=== PATIENT | male | born 1960 | race Caucasian/White ===

== ENCOUNTER 2017-03-22 15:45 | Inpatient (IN) | payer SELFPAY ==
[~2017-03-22] VITALS: Ht 165.1 cm; Wt 63.5 kg
[2017-03-22] MEDS ORDERED: IPRATRPIUM/ALBUTEROL 0.5/2.5MG 3 ML NEBU. NEB ONE (16:30)
[2017-03-22] MEDS ORDERED: methylPREDNISolone SOD SUCC PF 125 MG/2 ML VIAL. IV ONE (16:30)
[2017-03-22 16:40] LABS: BASO # 0.1 x10^3/uL (0.0-0.2); BASO % 0 % (0-3); EOS % 0 % (0-3); HEMATOCRIT 40.2 % (39.0-53.0); HEMOGLOBIN 13.9 g/dL (13.0-17.5); LYMPH # 0.7 x10^3/uL (1.0-4.8); LYMPH % 4 % (24-48); MEAN CORPUSCULAR HEMOGLOBIN 32 pg (25-35); MEAN CORPUSCULAR HGB CONC 35 g/dL (31-37); MEAN CORPUSCULAR VOLUME 92 fL (79-100); MONO # 1.8 x10^3/uL (0.0-1.1); MONO % 9 % (0-9); NEUT # 16.8 x10^3uL (1.8-7.7); NEUT % 87 % (31-73); PLATELET COUNT 151 x10^3/uL (140-400); RED BLOOD COUNT 4.37 x10^6/uL (4.30-5.70); WHITE BLOOD COUNT 19.4 x10^3/uL (4.0-11.0)
[2017-03-22] MEDS ORDERED: IV NORMAL SALINE 1,000ML 1,000 ML IV ONE (16:45)
[2017-03-22 17:14] LABS: ALBUMIN 2.7 g/dL (3.4-5.0); ALBUMIN/GLOBULIN RATIO 0.7 (1.0-1.7); ALK PHOS 75 U/L (46-116); ALT (SGPT) 50 U/L (16-63); ANION GAP 9 (6-14); AST (SGOT) 34 U/L (15-37); BLOOD UREA NITROGEN 15 mg/dL (8-26); BUN/CREATININE RATIO 19 (6-20); CALCIUM 8.5 mg/dL (8.5-10.1); CARBON DIOXIDE 26 mmol/L (21-32); CHLORIDE 97 mmol/L (98-107); CREATININE 0.8 mg/dL (0.7-1.3); GFR 99.6; GLUCOSE 138 mg/dL (70-99); POTASSIUM 4.1 mmol/L (3.5-5.1); SODIUM 132 mmol/L (136-145); TOTAL BILIRUBIN 1.3 mg/dL (0.2-1.0); TOTAL PROTEIN 6.5 g/dL (6.4-8.2)
[2017-03-22 17:28] LABS: INFLUENZA A PATIENT NEGATIVE (NEGATIVE); INFLUENZA B PATIENT NEGATIVE (NEGATIVE)
[2017-03-22] MEDS ORDERED: PIPERACILLIN/TAZOBACTAM 3.375 GM in IV NORMAL SALINE 50ML 50 ML IV ONE (17:30)
[2017-03-22] MEDS ORDERED: VANCOMYCIN 1 GM in IV NORMAL SALINE 250ML 250 ML IV ONE ×2 (17:30→22:00)
[2017-03-22] MEDS ORDERED: IOHEXOL 300 MG/ML 75 ML VIAL. IV ONE (17:30)
[2017-03-22] MEDS ORDERED: PIPERACILLIN/TAZOBACTAM 3.375 GM VIAL IV ONE ×2 (17:43→18:05)
[2017-03-22] MEDS ORDERED: IV NORMAL SALINE 50ML 50 ML ONE ×2 (17:43→18:05)
--- NOTE | 2017-03-22 18:25 | PHYS DOC ---
Past History Past Medical History: COPD, Hypertension, Other Past Surgical History: No Surgical History Alcohol Use: None Drug Use: None Adult General Chief Complaint Chief Complaint: SHORTNESS OF BREATH HPI HPI 57-year-old male patient with history of COPD and recent hospitalization with intubation left AMA 4 days ago from [facility] complaining of increasing shortness of breath and cough and generalized weakness since he left the hospital. Patient refused to come by EMS and unable called 911 fall and his nurse practitioner saw him at her office today and sent patient to emergency room for evaluation. Review of Systems Review of Systems Constitutional: Denies fever or chills [] Eyes: Denies change in visual acuity, redness, or eye pain [] HENT: Denies nasal congestion or sore throat [] Respiratory: reports Cough and shortness of breath Cardiovascular: No additional information not addressed in HPI [] GI: Denies abdominal pain, nausea, vomiting, bloody stools or diarrhea [] : Denies dysuria or hematuria [] Musculoskeletal: Denies joint pain , report back pain[] Integument: Denies rash or skin lesions [] Neurologic: Denies headache, focal weakness or sensory changes [] Endocrine: Denies polyuria or polydipsia [] All other systems were reviewed and found to be within normal limits, except as documented in this note. Current Medications Current Medications Current Medications Medications (Trade) Dose Ordered Sig/Damián Start Time Stop Time Status Last Admin Dose Admin Albuterol/ Ipratropium (Duoneb) 3 ml 1X ONCE 03/22/17 16:30 03/22/17 16:54 DC 03/22/17 16:53 3 ML Fentanyl Citrate (Fentanyl 2ml Vial) 50 mcg 1X ONCE 03/22/17 17:45 03/22/17 17:46 DC 03/22/17 18:01 50 MCG Iohexol (Omnipaque 300 Mg/ml) 75 ml 1X ONCE 03/22/17 17:30 03/22/17 17:31 DC 03/22/17 17:33 75 ML Methylprednisolone Sodium Succinate (SOLU-Medrol 125MG VIAL) 125 mg 1X ONCE 03/22/17 16:30 03/22/17 16:54 DC 03/22/17 16:43 125 MG Piperacillin Sod/ Tazobactam Sod (Zosyn) 3.375 gm STK-MED ONCE 03/22/17 18:05 2/11/18 18:06 DC Piperacillin Sod/ Tazobactam Sod 3.375 gm/Sodium Chloride 50 ml @ 100 mls/hr 1X ONCE 03/22/17 17:30 03/22/17 17:59 DC 03/22/17 18:01 100 MLS/HR Sodium Chloride 50 ml @ As Directed STK-MED ONCE 03/22/17 18:05 03/22/17 18:06 DC Vancomycin HCl 1 gm/Sodium Chloride 250 ml @ 250 mls/hr 1X ONCE 03/22/17 17:30 03/22/17 18:29 Allergies Allergies Allergies Coded Allergies Type Severity Reaction Last Updated Verified No Known Drug Allergies 03/22/17 No Physical Exam Physical Exam Constitutional: Moderate distress, non-toxic appearance, ill looking. [] HENT: Normocephalic, atraumatic, bilateral external ears normal, oropharynx moist, no oral exudates, nose normal. [] Eyes: PERRLA, EOMI, conjunctiva normal, no discharge. [] Neck: Normal range of motion, no tenderness, supple, no stridor. [] Cardiovascular: Tachycardia, no murmur [] Lungs & Thorax: Respiratory distress with intercostal dissection and decrease of air movement and bilateral wheezing and rhonchi Abdomen: Bowel sounds normal, soft, no tenderness, no masses, no pulsatile masses. [] Skin: Warm, dry, no erythema, no rash. [] Back: No tenderness, no CVA tenderness. [] Extremities: No tenderness, no cyanosis, no clubbing, ROM intact, no edema. [] Neurologic: Alert and oriented X 3, normal motor function, normal sensory function, no focal deficits noted. [] Psychologic: Affect normal, judgement normal, mood normal. [] Current Patient Data Vital Signs Vital Signs Date Time Temp Pulse Resp B/P (MAP) Pulse Ox O2 Delivery O2 Flow Rate FiO2 03/22/17 15:50 98.8 108 20 88 Room Air Lab Results Laboratory Tests Test 03/22/17 16:15 03/22/17 16:24 03/22/17 16:54 White Blood Count 19.4 x10^3/uL (4.0-11.0) H Red Blood Count 4.37 x10^6/uL (4.30-5.70) Hemoglobin 13.9 g/dL (13.0-17.5) Hematocrit 40.2 % (39.0-53.0) Mean Corpuscular Volume 92 fL (79-100) Mean Corpuscular Hemoglobin 32 pg (25-35) Mean Corpuscular Hemoglobin Concent 35 g/dL (31-37) Red Cell Distribution Width 14.0 % (11.5-14.5) Platelet Count 151 x10^3/uL (140-400) Neutrophils (%) (Auto) 87 % (31-73) H Lymphocytes (%) (Auto) 4 % (24-48) L Monocytes (%) (Auto) 9 % (0-9) Eosinophils (%) (Auto) 0 % (0-3) Basophils (%) (Auto) 0 % (0-3) Neutrophils # (Auto) 16.8 x10^3uL (1.8-7.7) H Lymphocytes # (Auto) 0.7 x10^3/uL (1.0-4.8) L Monocytes # (Auto) 1.8 x10^3/uL (0.0-1.1) H Eosinophils # (Auto) 0.0 x10^3/uL (0.0-0.7) Basophils # (Auto) 0.1 x10^3/uL (0.0-0.2) Platelet Estimate Pending D-Dimer (Juanita) 2.41 mg/L (0.00-0.50) H Sodium Level 132 mmol/L (136-145) L Potassium Level 4.1 mmol/L (3.5-5.1) Chloride Level 97 mmol/L (98-107) L Carbon Dioxide Level 26 mmol/L (21-32) Anion Gap 9 (6-14) Blood Urea Nitrogen 15 mg/dL (8-26) Creatinine 0.8 mg/dL (0.7-1.3) Estimated GFR (Cockcroft-Gault) 99.6 BUN/Creatinine Ratio 19 (6-20) Glucose Level 138 mg/dL (70-99) H Lactic Acid Level 1.6 mmol/L (0.4-2.0) Calcium Level 8.5 mg/dL (8.5-10.1) Total Bilirubin 1.3 mg/dL (0.2-1.0) H Aspartate Amino Transferase (AST) 34 U/L (15-37) Alanine Aminotransferase (ALT) 50 U/L (16-63) Alkaline Phosphatase 75 U/L (46-116) Creatine Kinase 43 U/L (39-308) Creatine Kinase MB (Mass) < 0.5 ng/mL (0.0-3.6) Creatine Kinase MB Relative Index 1.2 % (0-4) Troponin I Quantitative < 0.017 ng/mL (0-0.055) MX-Etn-A-Type Natriuretic Peptide 66 pg/mL (0-124) Total Protein 6.5 g/dL (6.4-8.2) Albumin 2.7 g/dL (3.4-5.0) L Albumin/Globulin Ratio 0.7 (1.0-1.7) L Influenza Type A (Rapid) Negative (NEGATIVE) Influenza Type B (Rapid) Negative (NEGATIVE) POC Arterial pH 7.51 (7.35-7.45) H POC Arterial pCO2 29 mmHg (35-45) L POC Arterial pO2 44 mmHg (75-100) L Arterial Blood HCO3 23 mmol/L (21-28) POC Arterial Blood O2 Sat 85 % (95-99) L POC FiO2 21.0 EKG EKG EKG interpreted by me. EKG at 1717 showed sinus tachycardia rate of 106, poor R wave practicing in anteroseptal leads, no acute ST and T wave abnormality[] Radiology/Procedures Radiology/Procedures [] Course & Med Decision Making Course & Med Decision Making Pertinent Labs and Imaging studies reviewed. (See chart for details) CT chest for PE evaluation is pending. Patient treated with IV fluid and pain medication and antibiotic. Patient care transferred to incoming doctor Dr. Layton at 1824 for admission. ER M.Elza. attending note Dr. August Layton. Care assumed by ms at 1824. Called by radiology with result of CTA of the chest. Radiologist reports a right lower lobe pulmonary embolism. Patient stable on reevaluation. He has no contraindications to anticoagulation. Case discussed with hospitalist on-call is aware the history and findings and agrees with inpatient admission to his service. Anticoagulation initiated [] Dragon Disclaimer Dragon Disclaimer This electronic medical record was generated, in whole or in part, using a voice recognition dictation system. Departure Departure: Impression: Primary Impression: COPD exacerbation Additional Impressions: Pulmonary embolism Acute dyspnea Disposition: ADMITTED INPATIENT Condition: STABLE Referrals: SARAH RODRIGUEZ- (PCP) Problem Qualifiers MILANA EUCEDA MD Mar 22, 2017 18:25 AUGUST LAYTON MD Mar 23, 2017 04:35
--- NOTE | 2017-03-22 18:33 | EKG ---
[address] [address] Test Date: 2017-03-22 Test Time: 17:17:52 Pat Name: NEHA HARVEY Department: Room: Gender: M Can Runner: SAMUEL : 1960 Requested By: MILANA EUCEDA Order Number: [id number] Reading MD: Nathan Burden Measurements Intervals [place] Rate: 106 P: 51 MA: 130 QRS: 47 QRSD: 84 T: 17 QT: 308 QTc: 411 Interpretive Statements SINUS TACHYCARDIA NONSPECIFIC ST-T WAVE CHANGES. POSSIBLY ABNORMAL ECG RI6.01 No previous ECG available for comparison Electronically Signed On 03-23-2017 16:47:42 DATA WAREHOUSING ENGINEER by Nathan Burden
--- NOTE | 2017-03-22 18:42 | RAD ---
Indication: Short of breath, severe back and chest pain. Elevated d-dimer. TECHNIQUE: CT angiogram of the chest with 75 mL of Omnipaque 300 with multiplanar MIP reformats. COMPARISON: None FINDINGS: Diagnostic quality PE study. Large filling defect is seen in the pulmonary artery supplying right lower lobe. Heart is normal in size. No pericardial or pleural effusion. Clear neck base. No axillary adenopathy. Multiple mediastinal and hilar lymph nodes noted. The in store representative lymph node in the mediastinum measures 1.9 x 1.2 cm in the aortopulmonary recess window. The large lymph node in the right hilum measures 1.8 x 1.4 cm. Diffuse centrilobular emphysema noted. Scattered areas of patchy opacities are seen with more confluent opacities in the bilateral lower lobes, right more than left. No pneumothorax. Visualized sections through the liver, spleen, gallbladder, pancreas, adrenals and kidneys are within normal limits. 1 cm nodule is seen in the right minor fissure (series 4 image 78). No suspicious bony lesion. IMPRESSION: 1. PE in the artery supplying right lower lobe. No evidence of right heart strain. 2. Diffuse patchy opacities with more confluent opacities in the bilateral lower lobes may represent multifocal pneumonia. Underlying right lower lobe pulmonary infarct although less likely, not completely ruled out. 3. Right minor fissure nodule may be primary lung malignancy , loculated fluid in the fissure "pseudotumor" or metastasis. Further evaluation with PET/CT or biopsy recommended. If neither is planned, follow-up CT chest in 3 months recommended. 4. Mediastinal and hilar lymph nodes most likely reactive. Critical findings were identified on 03/22/2017 6:18 PM, read back and verified with Dr. Layton on 03/22/2017 6:[address] All Begum DO. Electronically signed by: All Begum DO (03/22/2017 6:38 PM) [facility]
[2017-03-22] MEDS ORDERED: IV NORMAL SALINE 250ML 250 ML ONE (18:57)
[2017-03-22] MEDS ORDERED: VANCOMYCIN 1 GM VIAL. ONE (18:57)
[2017-03-22] MEDS ORDERED: ENOXAPARIN ** NOTE DOSE ** SYRINGE SQ ONE (19:00)
[2017-03-22] MEDS ORDERED: ONDANSETRON PF 4 MG/2 ML VIAL. IV PRN (19:15)
[2017-03-22 21:00] VITALS: BP 128/71
[2017-03-22 21:03] LABS: % BANDS 2 % (0-9); % LYMPHS 8 % (24-48); % MONOS 4 % (0-10); % SEGS 86 % (35-66)
[2017-03-22 21:09] LABS: PLT ESTIMATE ADEQUATE (ADEQUATE)
[2017-03-22 21:10] LABS: POLYCHROMASIA SLIGHT
[2017-03-22] MEDS ORDERED: ACETAMINOPHEN 500 MG TABLET PO PRN (21:15)
[2017-03-22] MEDS ORDERED: PIP/TAZO PER PHARMACY MC PRN (21:30)
[2017-03-22] MEDS ORDERED: VANCOMYCIN 1.5 GM in IV NORMAL SALINE 500ML 500 ML IV ONE (21:45)
[2017-03-22] MEDS: methylPREDNISolone SOD SUCC PF 125 MG/2 ML VIAL. IV SCH (21:53)
[2017-03-22] MEDS: IV NORMAL SALINE 1,000ML 1,000 ML IV SCH (21:53)
[2017-03-22 22:00] VITALS: BP 109/71
[2017-03-22] MEDS: VANCOMYCIN PER PHARMACY MC PRN (22:52)
[2017-03-22 23:00] VITALS: BP 101/61
[2017-03-22] MEDS: PIPERACILLIN/TAZOBACTAM 3.375 GM in IV NORMAL SALINE 50ML 50 ML IV SCH (23:45)
[2017-03-23] VITALS (21 sets, daily range): BP systolic 81–136; BP diastolic 47–78
[2017-03-23] MEDS ORDERED: PIPERACILLIN/TAZOBACTAM 4.5 GM in IV NORMAL SALINE 50ML 50 ML IV SCH ×2
[2017-03-23] MEDS ORDERED: Tramadol PO (02:30)
[2017-03-23] MEDS ORDERED: LISI-338 PO (02:30)
[2017-03-23] MEDS ORDERED: FLEXERIL (02:31)
[2017-03-23] MEDS: IPRATRPIUM/ALBUTEROL 0.5/2.5MG 3 ML NEBU. NEB SCH ×4 (05:32→20:25)
[2017-03-23 06:31] LABS: BASO % 0 % (0-3); EOS % 0 % (0-3); HEMOGLOBIN 11.9 g/dL (13.0-17.5); LYMPH # 0.5 x10^3/uL (1.0-4.8); LYMPH % 3 % (24-48); MEAN CORPUSCULAR HEMOGLOBIN 32 pg (25-35); MEAN CORPUSCULAR HGB CONC 34 g/dL (31-37); MEAN CORPUSCULAR VOLUME 93 fL (79-100); MONO # 0.5 x10^3/uL (0.0-1.1); MONO % 3 % (0-9); NEUT # 16.1 x10^3uL (1.8-7.7); NEUT % 94 % (31-73); PLATELET COUNT 122 x10^3/uL (140-400); RED BLOOD COUNT 3.77 x10^6/uL (4.30-5.70); WHITE BLOOD COUNT 17.1 x10^3/uL (4.0-11.0)
[2017-03-23] MEDS: PIPERACILLIN/TAZOBACTAM 3.375 GM in IV NORMAL SALINE 50ML 50 ML IV SCH ×4 (06:43→23:07)
[2017-03-23] MEDS: methylPREDNISolone SOD SUCC PF 125 MG/2 ML VIAL. IV SCH ×3 (06:43→20:17)
[2017-03-23 06:48] LABS: ALBUMIN/GLOBULIN RATIO 0.5 (1.0-1.7); CALCIUM 8.5 mg/dL (8.5-10.1); CREATININE 0.7 mg/dL (0.7-1.3); GFR 116.2; POTASSIUM 4.2 mmol/L (3.5-5.1); TOTAL PROTEIN 6.2 g/dL (6.4-8.2)
--- NOTE | 2017-03-23 07:43 | RAD ---
EXAM: Chest one view. HISTORY: Shortness of breath. COMPARISON: None. FINDINGS: A frontal view of the chest is obtained. Lung volumes are small. There are bilateral basilar and subpleural interstitial opacities. There is no pneumothorax or pleural effusion. The heart is not enlarged. IMPRESSION: 1. Bilateral interstitial opacities with small lung volumes. Correlate for interstitial lung disease and fibrosis.
[2017-03-23] MEDS ORDERED: VANCOMYCIN 1.5 GM in IV NORMAL SALINE 500ML 500 ML IV ONE (08:00)
[2017-03-23] MEDS ORDERED: ALBUTEROL SULFATE 2.5 MG/3 ML NEBU. NEB PRN (08:15)
[2017-03-23] MEDS: ENOXAPARIN ** NOTE DOSE ** SYRINGE SQ SCH ×2 (08:22→20:17)
[2017-03-23] MEDS: IV NORMAL SALINE 1,000ML 1,000 ML IV SCH ×3 (08:27→18:25)
[2017-03-23] MEDS: LACTOBACILLUS RHAMNOSUS GG 1 CAPSULE. PO SCH ×2 (10:09→20:15)
[2017-03-23] MEDS: VANCOMYCIN 1 GM in IV NORMAL SALINE 250ML 250 ML IV SCH ×2 (10:09→21:32)
[2017-03-23] MEDS ORDERED: WARFARIN 10 MG TABLET. PO ONE (14:30)
--- NOTE | 2017-03-23 18:10 | HP ---
ADMIT DATE: 03/22/2017 HISTORY OF PRESENT ILLNESS: The patient is a 57-year-old male patient, who was brought to the Emergency Room. He apparently was seen at [facility] where he was admitted with pneumonia and acute respiratory failure and COPD exacerbation, was intubated and was admitted to [facility] and at [facility], apparently he was extubated and from there, he left against medical advice about 5 days ago and on Thursday and Thursday, he is becoming very short of breath. He was evaluated by his nurse practitioner yesterday at her office and was sent to the Emergency Room for further evaluation where he was diagnosed with bilateral patchy opacities involving lower lobe representing multifocal pneumonia. He has right minor fissure nodule, may be primary lung malignancy loculated fluid, the fissure pseudotumor metastases. He has also mediastinal and hilar lymphadenopathy, most likely reactive and has pulmonary embolism in the artery supplying the right lower lobe with no evidence of right heart strain. He was admitted and started on treatment with IV antibiotic in the form of vancomycin and Zosyn. He was also started on Lovenox for PE treatment. PAST MEDICAL HISTORY: Significant for hypertension, COPD. PAST SURGICAL HISTORY: Unremarkable. ALLERGIES: He has no known drug allergies. SOCIAL HISTORY: He is . Quit smoking in 03/04/2017. Does not drink alcohol or use any recreational drugs. MEDICATIONS: He is normally on lisinopril 5 mg once a day. He is also on Flexeril and tramadol. PHYSICAL EXAMINATION: GENERAL: On arrival to the Emergency Room, he was slightly tachypneic, pale, cachectic, no jaundice, cyanosed, no lymphadenopathy, no thyromegaly. No jugular venous distension. No limb edema. VITAL SIGNS: His heart rate was 108, blood pressure was 118/79, temperature was 98.8, respiratory rate 20, and oxygen saturation was 88% on room air, improved to 94% on 3 liters of oxygen. HEENT: Showed normocephalic, atraumatic. NECK: Supple. HEART: Showed normal first and second sounds. No gallop, rub or murmur. CHEST: Shows central trachea, equally reduced expansion, reduced and fixed sounds with crepitation mostly on the right side posteriorly. ABDOMEN: Distended, soft, and nontender. No guarding or rigidity. No organomegaly. Hernial orifice intact. Bowel sounds normal. NEUROLOGIC: He was awake, alert, responding appropriately. All cranial nerves intact. He moves extremities without difficulty; he ambulates without assistance or assistive devices. LABORATORY DATA: While in the Emergency Room, had lab work showed he underwent a white cell count of 19,400, hemoglobin 14, hematocrit 40, MCV 92, and platelet count of 151,000. His D-dimer was 2.41 mg/dL. His blood gas showed a pH of 7.51, pCO2 of 29, pO2 of 44, bicarbonate 23, and oxygen saturation was 85% on room air. His chemistry showed serum sodium of 132, potassium 4.1, chloride 97, bicarbonate 26, anion gap of 9, BUN 15, creatinine 0.8, estimated GFR was 99 mL per minute, his glucose 138, calcium was 8.5, lactic acid was 1.6. Total bilirubin, AST, ALT, alkaline phosphatase were normal. Total protein was 6.5, albumin 2.7. His influenza A and B were negative. His chest x-ray showed bilateral interstitial opacities with small lung volumes, correlate for interstitial lung disease or fibrosis and a CT angio of the chest showed that he has pulmonary embolus in the artery supplying the right lower lobe. No evidence of right heart strain. Diffuse patchy opacities with more confluent opacities in the bilateral lower lobes represents multifocal pneumonia. He has mediastinal hilar lymph nodes, most likely reactive. IMPRESSION: In summary, this is a 57-year-old male patient with a past medical history significant for chronic obstructive pulmonary disease, admitted with bilateral pneumonia as well as pulmonary embolus and acute hypoxic respiratory failure and chronic obstructive pulmonary disease exacerbation. He was started on vancomycin and Zosyn as well as steroids as well as Lovenox. ROCIO VINSON MD DR: JULIEN/elen JOB#: [id number] / [id number]
[2017-03-23] MEDS ORDERED: TRAM50TA PO (18:27)
[2017-03-23] MEDS ORDERED: traMADol 50 MG TABLET PO PRN (19:00)
[2017-03-23] MEDS: traMADol 50 MG TABLET PO PRN (20:16)
[2017-03-23] MEDS ORDERED: CALCIUM CARBONATE 500 MG TAB.CHEW PO PRN (21:30)
[2017-03-24] VITALS (12 sets, daily range): BP systolic 101–126; BP diastolic 56–76
[2017-03-24] MEDS ORDERED: IV NORMAL SALINE 1,000ML 1,000 ML IV SCH (04:00)
[2017-03-24] MEDS: methylPREDNISolone SOD SUCC PF 125 MG/2 ML VIAL. IV SCH ×2 (05:15→17:22)
[2017-03-24] MEDS: PIPERACILLIN/TAZOBACTAM 3.375 GM in IV NORMAL SALINE 50ML 50 ML IV SCH ×4 (05:15→22:05)
[2017-03-24] MEDS: IPRATRPIUM/ALBUTEROL 0.5/2.5MG 3 ML NEBU. NEB SCH ×4 (05:36→20:55)
[2017-03-24] MEDS: LACTOBACILLUS RHAMNOSUS GG 1 CAPSULE. PO SCH ×2 (07:10→21:10)
[2017-03-24] MEDS: ENOXAPARIN ** NOTE DOSE ** SYRINGE SQ SCH ×2 (07:10→21:11)
[2017-03-24 09:42] LABS: CALCIUM 8.3 mg/dL (8.5-10.1); CREATININE 0.8 mg/dL (0.7-1.3); GFR 99.6
[2017-03-24 09:47] LABS: VANC TR 4.7 mcg/mL (10.0-20.0)
[2017-03-24 09:50] LABS: HEMATOCRIT 31.8 % (39.0-53.0); HEMOGLOBIN 10.7 g/dL (13.0-17.5); RED BLOOD COUNT 3.43 x10^6/uL (4.30-5.70); RED CELL DISTRIBUTION WIDTH 13.9 % (11.5-14.5); WHITE BLOOD COUNT 22.8 x10^3/uL (4.0-11.0)
[2017-03-24] MEDS ORDERED: VANCOMYCIN 1.25 GM in IV NORMAL SALINE 250ML 250 ML IV SCH ×2 (10:00→10:15)
[2017-03-24] MEDS: VANCOMYCIN PER PHARMACY MC PRN (10:52)
[2017-03-24] MEDS: POTASSIUM CHLORIDE 20 MEQ TABLET.ER. PO SCH ×3 (11:09→21:11)
[2017-03-24] MEDS ORDERED: WARFARIN 5 MG TABLET. PO ONE (13:30)
[2017-03-24 13:55] LABS: CALCIUM 8.3 mg/dL (8.5-10.1); CREATININE 0.8 mg/dL (0.7-1.3); GFR 99.6
[2017-03-24 13:59] LABS: POTASSIUM 2.9 mmol/L (3.5-5.1)
[2017-03-24] MEDS ORDERED: POTASSIUM CHLORIDE 20 MEQ TABLET.ER. PO SCH (14:00)
[2017-03-24] MEDS ORDERED: methylPREDNISolone SOD SUCC PF 40 MG/ML VIAL. IV SCH (14:00)
[2017-03-24] MEDS ORDERED: methylPREDNISolone SOD SUCC PF 125 MG/2 ML VIAL. IV ONE (14:00)
[2017-03-24] MEDS: traMADol 50 MG TABLET PO PRN (21:50)
--- NOTE | 2017-03-24 22:28 | PN ---
DATE: 03/24/2017 SUBJECTIVE: The patient is resting, slightly propped up in bed, no apparent distress. He denied any chest pain or shortness of breath at rest. He does complain of exertional dyspnea. PHYSICAL EXAMINATION: GENERAL: When I examined him, he looked pale, but no jaundice, cyanosis, or thyromegaly. No jugular venous distention. No limb edema. VITAL SIGNS: His heart rate was 86, blood pressure 116/71, temperature was 97.4, respiratory rate 22 and oxygen saturation was 92% on 2 L of oxygen by nasal cannula. HEAD, EYES, EARS, NOSE AND THROAT: Showed normocephalic, atraumatic. NECK: Supple. HEART: Showed normal first and second sounds. No gallop, rub or murmur. CHEST: Clear to auscultation. No crepitation or rhonchi. ABDOMEN: Distended, soft, nontender. No guarding or rigidity. No organomegaly. Hernial orifice intact. Bowel sounds normal. NEUROLOGIC: He was awake, alert, responding appropriately. Cranial nerves intact. He moves extremities without difficulty, ambulates without assistance or assistive devices. His intake over the last 24 hours was 3720, output was 1175. LABORATORY WORUP: As of this morning showed a white cell count 22,000, hemoglobin 11, hematocrit 32, MCV 93, and platelet count of 119,000. His chemistry showed a serum sodium 142, potassium 3, chloride 106, bicarbonate 23, anion gap of 13, BUN 14, creatinine 0.8, estimated GFR was 99 mL per minute, his glucose was 107, calcium was 8.3. Total protein was 6.2, albumin 2. His prothrombin time was 14.5, INR of 1.4. ASSESSMENT: 1. Bilateral pneumonic infiltrate. 2. Acute pulmonary embolism 3. Acute hypoxic respiratory failure. 4. Chronic obstructive pulmonary disease exacerbation. 5. Hypokalemia. 6. Severe protein-calorie malnutrition with serum albumin only 2 g/dL. 7. Thrombocytopenia with a platelet count of 119,000. PLAN: To continue with IV antibiotic in the form of vancomycin as well as piperacillin, tazobactam. Continue with the Lovenox as well as Coumadin. We will discontinue the vancomycin tomorrow if the culture is negative and discontinue Lovenox if PT/INR is within therapeutic range. ROCIO VINSON MD DR: Marielle JOB#: [id number] / [id number]
[2017-03-25 00:01] VITALS: BP 130/71
[2017-03-25] MEDS: methylPREDNISolone SOD SUCC PF 125 MG/2 ML VIAL. IV SCH (05:41)
[2017-03-25] MEDS: PIPERACILLIN/TAZOBACTAM 3.375 GM in IV NORMAL SALINE 50ML 50 ML IV SCH ×2 (05:41→11:00)
[2017-03-25 05:49] VITALS: BP 118/68
[2017-03-25] MEDS: IPRATRPIUM/ALBUTEROL 0.5/2.5MG 3 ML NEBU. NEB SCH ×3 (05:50→16:00)
[2017-03-25] MEDS: POTASSIUM CHLORIDE 20 MEQ TABLET.ER. PO SCH ×2 (08:34→14:33)
[2017-03-25] MEDS: LACTOBACILLUS RHAMNOSUS GG 1 CAPSULE. PO SCH (08:34)
[2017-03-25] MEDS: ENOXAPARIN ** NOTE DOSE ** SYRINGE SQ SCH (08:35)
[2017-03-25 10:38] LABS: HEMATOCRIT 34.8 % (39.0-53.0); HEMOGLOBIN 11.4 g/dL (13.0-17.5); RED BLOOD COUNT 3.61 x10^6/uL (4.30-5.70); WHITE BLOOD COUNT 16.1 x10^3/uL (4.0-11.0)
[2017-03-25 11:42] VITALS: BP 109/71
[2017-03-25 13:04] LABS: CALCIUM 8.6 mg/dL (8.5-10.1); CREATININE 0.7 mg/dL (0.7-1.3); GFR 116.2; POTASSIUM 3.8 mmol/L (3.5-5.1)
[2017-03-25 14:18] LABS: VANC TR 1.8 mcg/mL (10.0-20.0)
[2017-03-25 15:46] VITALS: BP 131/75
[2017-03-25] MEDS ORDERED: AMOX1TAB61 PO (16:33)
[2017-03-25] MEDS ORDERED: WARF1TAB74 PO (16:34)
--- NOTE | 2017-03-25 20:49 | DS ---
DATE OF DISCHARGE: 03/25/2017 HOSPITAL COURSE: The patient is a 57-year-old male patient who was admitted on 03/22/2017 with community-acquired pneumonia, pulmonary embolism, acute hypoxic respiratory failure and chronic obstructive pulmonary disease exacerbation. He was started on IV vancomycin and Zosyn as well as steroids and Lovenox. His blood cultures are negative, so we discontinued the vancomycin. We started him on Coumadin and today, his Prothrombin time was 42.9, INR of 4.3 and a decision was made to discharge him home to continue on oral Augmentin twice a day. I told him not to take any Coumadin today, Thursday the , and tomorrow, the . He should have his PT INR checked on Thursday. His primary care physician should adjust the dose to maintain INR between 2 and 2.5. PHYSICAL EXAMINATION: GENERAL: When I examined today, he looked pale, but no jaundice, cyanosis or thyromegaly. No jugular venous distension. No limb edema. VITAL SIGNS: His heart rate was 80, blood pressure was 131/75, temperature was 98.2, respiratory rate 22, and oxygen saturation was 93% on 2 liters of oxygen. HEAD, EYES, EARS, NOSE AND THROAT: Normocephalic, atraumatic. NECK: Supple. HEART: Showed normal first and second sounds. No gallop, rub or murmur. CHEST: Clear to auscultation. No crepitation or rhonchi. ABDOMEN: Distended, soft, nontender. No guarding or rigidity. No organomegaly. Hernial orifice intact. Bowel sounds normal. NEUROLOGIC: He was awake, alert, responding appropriately. All cranial nerves intact. He moves extremities without difficulty, ambulates without assistance or assistive devices. LABORATORY DATA: As of this morning showed a prothrombin time of 42.9, INR of 4.3. His white cell count was 16,000, hemoglobin 11, hematocrit 34, MCV 97 and platelet count of 140,000. His chemistry showed a serum sodium of 142, potassium 3.8, chloride 105, bicarbonate 26, anion gap of 11, BUN 12, creatinine 0.7, estimated GFR was 116 mL per minute, his glucose 171, calcium was 8.6. His influenza A and B were negative. His MRSA was negative. DISCHARGE MEDICATIONS: He was discharged home to continue on Augmentin 875 mg twice a day with food for 7 days, warfarin adjusted by the primary care physician to maintain INR between 2 and 2.5, lisinopril 5 mg once a day, tramadol 50 mg every 6 hours and Flexeril. FINAL DISCHARGE DIAGNOSES: 1. Bilateral pneumonic infiltrate. 2. Acute pulmonary embolism. 3. Acute hypoxic respiratory failure. 4. Chronic obstructive pulmonary disease exacerbation. 5. Hypokalemia. 6. Severe protein calorie malnutrition with serum albumin is only 2 g/dL. 7. Thrombocytopenia that is improving. ROCIO VINSON MD DR: JULIEN/elen JOB#: [id number] / [id number]
== END 2017-03-25 15:30 | disposition left against medical advice (07) | DRG 175 ==
LOC: ER 15:45 → ICU 18:55 → 1 SOUTH 03-24 23:22
PROVIDERS: ADMIT Family Medicine; ATTEND Family Medicine
DX: I26.99 Other pulmonary embolism without acute cor pulmonale (principal); J18.9 Pneumonia, unspecified organism; J96.01 Acute respiratory failure with hypoxia; E43 Unspecified severe protein-calorie malnutrition; D69.6 Thrombocytopenia, unspecified; J44.0 Chronic obstructive pulmonary disease with (acute) lower respiratory infection; J44.1 Chronic obstructive pulmonary disease with (acute) exacerbation; E87.6 Hypokalemia; I10 Essential (primary) hypertension; Z87.891 Personal history of nicotine dependence; Z68.23 Body mass index [BMI] 23.0-23.9, adult
CPT/HCPCS: 36415; 71045; 71275; 80048; 80053; 80202; 82553; 82803; 83605; 83880; 84484; 85007; 85025; 85027; 85379; 85610; 87040; 87641; 87804; 93005; 94640; 96361; 96365; 96367; 96372; 96375; 97163; G0238; J1650; J2543; J2930; J3010; J3370; J7050; J7613; J7620; Q9967; 97110; 97530; 97535; 99285-25; J7030